=== PATIENT | male | born 1940 | race Caucasian/White ===

== ENCOUNTER → 2020-09-24 | Outpatient (CLI) | payer MEDICARE, MEDICAID | LOC: M.MRI 10:51 | PROVIDERS: ATTEND Family Medicine | DX: S46.011A Strain of muscle(s) and tendon(s) of the rotator cuff of right shoulder, initial encounter (principal); M19.011 Primary osteoarthritis, right shoulder; M25.511 Pain in right shoulder; M54.12 Radiculopathy, cervical region; X58.XXXA Exposure to other specified factors, initial encounter; Y92.89 Other specified places as the place of occurrence of the external cause; Y93.89 Activity, other specified; Y99.8 Other external cause status ==

== ENCOUNTER → 2020-09-29 | Outpatient (CLI) | payer MEDICARE, MEDICAID | LOC: M.MRI 09-15 10:43 | PROVIDERS: ATTEND Family Medicine | DX: M47.22 Other spondylosis with radiculopathy, cervical region (principal); G93.89 Other specified disorders of brain; R90.82 White matter disease, unspecified; M48.02 Spinal stenosis, cervical region; M25.511 Pain in right shoulder; Z86.011 Personal history of benign neoplasm of the brain; Z68.32 Body mass index [BMI] 32.0-32.9, adult; I25.10 Atherosclerotic heart disease of native coronary artery without angina pectoris; N18.30 Chronic kidney disease, stage 3 unspecified; W19.XXXD Unspecified fall, subsequent encounter; I10 Essential (primary) hypertension ==

== ENCOUNTER → 2021-01-19 | Outpatient (CLI) | payer MEDICARE, MEDICAID ==
--- NOTE | 2021-01-19 17:29 | CARDNUC ---
[place] [address] CARDIAC NUCLEAR IMAGING REPORT Name: CHANDA RAMOS Katherine Room: [facility]#: [id number] Admission: 01/19/21 Attend Phys: Brigido Rodriguez, Discharge: Date of : 38 Date of Service: 01/19/21 1729 Report #: [id number] THIS REPORT FOR: cc: Genesis Hester Maggie M. DO Liston, Michael J. MD [facility] ~ APPROVED REPORT Imaging Protocol: Rest Tc-99m/Stress Tc-99m 1 day Study performed: 01/19/2021 09:45:00 Indication: Chest pain, CAD, Essential HTN Patient Location: Out-Patient Stress Tech: Felisha Queen Stress Nurse: Lyndsey PETERSON Tech:ABISAI Dixon Ht: 6 ft 0 in Wt: 238 lbs BSA: 2.29 m2 HR: 57 bpm BP: 155/68 mmHg BMI: 32.27 Rhythm: SR, BBB Medical History Medical History: CAD s/p stent Medications: Carvedilol, Lipitor, Clonidine, Plavix, Lasix, Hydralazine, Lisinopril, NTG Allergies: Prednisone Cardiac Risk Factors: Age, HTN, Hyperlipidemia Previous Cardiac Procedures: PCI Pretest Chest Pain Characteristics: No chest pain Meds Held (24 hrs): NTG Meds Held (48 hrs): NTG Resting Data Rest SPECT myocardial perfusion imaging was performed in supine position 30 minutes following the intravenous injection of 10.6 mCi of Tc-99m Sestamibi. Time of rest injection: 1000 Date: 01/19/2021 The images were gated to evaluate regional wall motion and calculate left ventricular ejection fraction. Administration Route: IV Pharmacologic Stress Pharmacologic stress test was performed by injecting Regadenoson 0.4 [place] [address] CARDIAC NUCLEAR IMAGING REPORT Name: CHANDA RAMOS Room: [facility]#: [id number] Admission: 01/19/21 Attend Phys: Brigido Rodriguez, Discharge: Date of : 38 Date of Service: 01/19/21 1729 Report #: [id number] mg IV push over 10-15 seconds immediately followed by the intravenous injection of 34.1 mCi of Tc-99m Sestamibi. Time of stress injection: 1120 Date: 01/19/2021 Administration Route: IV Gated Stress SPECT was performed 40 minutes after stress injection. The images were gated to evaluate regional wall motion and calculate left ventricular ejection fraction. Stress only was performed in the Supine position. Stress Test Details Stress Test: Pharmacologic stress testing performed using 0.4 mg of regadenoson per 5 mL given IV over 10 seconds. Reason for pharmacologic stress test: HTN. HR Max Heart Rate (APMHR): 139 bpm Resting HR: 57 bpm Target HR (85% APMHR): 118 bpm Max HR Achieved: 85 bpm % of APMHR: 61 Recovery HR: 83 bpm BP Resting BP: 155/68 mmHg Max BP: 172/62 mmHg Recovery BP: 160/69 mmHg ECG Resting ECG: Sinus Rhythm, LBBB Stress ECG: Sinus Rhythm, LBBB ST Change: None Arrhythmia: None Recovery ECG: Sinus Rhythm, LBBB Recovery ST Change: None Recovery Arrhythmia: None Clinical Reason for Termination: Completed protocol Stress Symptoms: None The patient had no significant cardiac symptoms with Lexiscan infusion. Nurse Comments Pt experienced no s/s post Lexiscan administration Stress ECG Conclusion The baseline twelve-lead EKG shows sinus rhythm with left bundle branch block. EKGs obtained during and [place] [address] CARDIAC NUCLEAR IMAGING REPORT Name: CHANDA RAMOS Room: [facility]#: [id number] Admission: 01/19/21 Attend Phys: Brigido Rodriguez, Discharge: Date of : 38 Date of Service: 01/19/21 1729 Report #: [id number] sinus rhythm with left bundle branch block. There were no stress-induced arrhythmias. Study Quality Study: Good Artifact: Mild Diaphragmatic artifact Study Data At rest, the left ventricular ejection fraction was 55%.. Post stress, the left ventricular ejection was 55%.. TID = 1.02. Perfusion Perfusion images obtained at rest and post Lexiscan stress show mild photopenia in the basal portion the inferior wall. Wall motion in this region appears preserved suggesting diaphragmatic attenuation artifact. No other significant fixed or reversible defects were identified. Wall Motion Global LV systolic function is preserved. There is slight systolic dyssynergy consistent with underlying bundle branch block. Nuclear Conclusion ECG Findings: non-diagnostic Clinical Findings: negative for ischemia Nuclear Findings: negative for ischemia Exercise Capacity: not assessed Left Ventricular Function: Preserved Perfusion images show no defect to suggest ischemia. Global LV systolic function is preserved. This is not a high risk study. <Conclusion> The baseline twelve-lead EKG shows sinus rhythm with left bundle branch block. EKGs obtained during and post Lexiscan infusion shows sinus rhythm with left bundle branch block. There were no stress-induced arrhythmias. <ELECTRONICALLY SIGNED> By: Brigido Rodriguez MD, FACC 01/19/211728 28 28 Brigido Rodriguez MD, FACC /INF
== END ==
LOC: M.NUC 12-29 15:03 → M.CRD 01-12 09:00 → M.NUC 01-12 10:00
PROVIDERS: ATTEND Internal Medicine Cardiovascular Disease
DX: I25.10 Atherosclerotic heart disease of native coronary artery without angina pectoris (principal); I10 Essential (primary) hypertension; R07.9 Chest pain, unspecified